=== PATIENT | male | born 1965 ===

== ENCOUNTER 2025-04-08 10:53 | Emergency (ER) | payer OTHER ==
[~2025-04-08] VITALS: Ht 175.3 cm; Wt 102.1 kg
[2025-04-08] MEDS ORDERED: COZAAR100 MG PO (11:17)
[2025-04-08] MEDS ORDERED: DULOXETINE HCL20 MG PO (11:17)
[2025-04-08] MEDS ORDERED: ADULT LOW DOSE81 M1 PO (11:18)
[2025-04-08 13:10] LABS: BASO % 0.5 % (0.1-1.2); EOS # 0.25 (0.04-0.54); EOS % 2.3 % (0.7-7.0); LYMPH # 1.93 (1.18-3.74); LYMPH % 17.4 % (19.3-53.1); MEAN PLATELET VOLUME 9.60 fl (9.4-12.4); MONO # 0.73 (0.24-0.82); MONO % 6.6 % (4.7-12.5); NEUT # 8.08 (1.56-6.13); NEUT % 72.9 % (34.0-71.1); RED CELL DISTRIBUTION WIDTH 14.9 % (11.6-14.4)
[2025-04-08 13:35] LABS: ALT/SGPT 20.0 U/L (12-78); AST/SGOT 19.0 U/L (15-37); BILIRUBIN TOTAL 0.64 mg/dL (0.3-1.2); BUN CREA RATIO 17.0 (7.0-25.0); CREATININE SERUM 1.33 mg/dL (0.70-1.30); GFR 55.22; GLOBULINA 3.8 G/DL (2.4-3.5); GLUCOSE FASTING 126.0 mg/dL (65-100); OSMOLALITY SERUM 285.0 MOSM/KG (275-295)
[2025-04-08] MEDS ORDERED: CEFTRIAXONE SODIUM 1,000 MG VIAL ONE (15:37)
[2025-04-08] MEDS ORDERED: KETOROLAC TROMETHAMINE 60 MG VIAL IM ONE ×2 (15:45→16:21)
[2025-04-08] MEDS ORDERED: CEFTRIAXONE SODIUM 1,000 MG VIAL IM ONE (15:45)
[2025-04-08] MEDS ORDERED: DEXAMETHASONE SODIUM PHOSPHATE 4 MG/ML VIAL IM ONE (15:45)
[2025-04-08] MEDS ORDERED: DEXAMETHASONE SODIUM PHOSPHATE 4 MG/ML VIAL ONE (16:21)
[2025-04-08] MEDS ORDERED: CEPHALEXIN500 MG PO (16:24)
[2025-04-08] MEDS ORDERED: IBUPROFEN600 MG PO (16:25)
== END 2025-04-08 16:55 | disposition home or self-care (01) ==
LOC: ER 10:53
PROVIDERS: Preventive Medicine Public Health & General Preventive Medicine
DX: S00.93XA Contusion of unspecified part of head, initial encounter (principal); S60.212A Contusion of left wrist, initial encounter; S60.211A Contusion of right wrist, initial encounter; W19.XXXA Unspecified fall, initial encounter; Y93.89 Activity, other specified; Y92.59 Other trade areas as the place of occurrence of the external cause; Y99.9 Unspecified external cause status; L03.116 Cellulitis of left lower limb; I10 Essential (primary) hypertension